=== PATIENT | male | born 1950 | race Caucasian/White ===

== ENCOUNTER 2023-01-21 13:50 | Outpatient (CLI) | payer MEDICARE, SELFPAY ==
--- NOTE | ~2023-01-21 | US_ITS ---
EXAMINATION: US renal BI DATE: 01/21/2023 14:33 INDICATION: Chronic kidney disease TECHNIQUE: Multiple ultrasound grayscale images of the kidneys were obtained. COMPARISON: None. FINDINGS: The right kidney measures 10.1 x 5.8 x 5.2 cm. The left kidney measures 11.2 x 5.6 x 5.1 cm. The kidn eys demonstrate normal echogenicity. There is no hydronephrosis in either kidney. No stones identifi ed. The bladder is normal with bilateral ureteral jets visualized on color Doppler. Increased activit y of the visualized liver consistent with diffuse hepatic steatosis. IMPRESSION: 1. Normal kidneys without hydronephrosis. Reviewed, dictated and finalized at location L.
== END 2023-01-21 13:51 | disposition home or self-care (01) ==
PROVIDERS: PCP Family Medicine Adolescent Medicine; Visit Provider Internal Medicine Nephrology
DX: I12.9 Hypertensive chronic kidney disease with stage 1 through stage 4 chronic kidney disease, or unspecified chronic kidney disease (principal); N18.32 Chronic kidney disease, stage 3b
CPT/HCPCS: 76775

== ENCOUNTER 2024-01-04 12:05 | Outpatient (CLI) | payer MEDICARE, SELFPAY ==
--- NOTE | ~2024-01-04 | XR_ITS ---
XR chest 2V 01/04/2024 12:18 Indication: Chronic cough Procedure: 2 view chest Comparison: No prior studies for comparison. Findings: Status post median sternotomy for CABG. Heart size normal. No focal air space disease, pulm onary edema, pleural effusion or suspected pneumothorax. There is a prosthetic heart valve. Impression: 1: No acute cardiopulmonary disease. Reviewed, dictated and finalized at location B. Impression: 1: No acute cardiopulmonary disease.
== END 2024-01-04 12:06 ==
LOC: MICIMG 12:06
PROVIDERS: PCP Family Medicine Adolescent Medicine; Visit Provider Family Medicine Adolescent Medicine
DX: R05.3 Chronic cough (principal)
CPT/HCPCS: 71046

== ENCOUNTER 2024-05-02 02:08 | Day surgery (SDC) | payer MEDICARE, SELFPAY ==
[2024-04-12 10:59] VITALS: BMI 31.6
[2024-05-02 09:01] VITALS: BP 164/90; PULSE 62; RESP 20; TEMP 36.1; O2SAT 97; BMI 32.9
[2024-05-02] MEDS: LACTATED RINGERS 1,000 ML 150 ML IV CONT (09:25)
[2024-05-02 09:27] LABS: Glucose Point of Care 127 mg/dl (65-105)
--- NOTE | 2024-05-02 09:31 | WPDANESEPPF ---
Anes - Initial Pre Proc Eval Procedure: Operation Date: 05/02/24 10:00 Proposed Procedures p Screening Colonoscopy - Zander Norris MD Date/Time: 05/02/24 09:31 Surgeon: Zander Norris MD Pre Op Diagnosis: neoplasm screening Patient Data Age: 73 Gender: M Height: 1.78 m Weight: 104.2 kg Last Vital Signs Temp 97.0 F L 05/02/24 09:01 Pulse 62 05/02/24 09:01 Resp 20 05/02/24 09:01 BP 164/90 H 05/02/24 09:01 Pulse Ox 97 05/02/24 09:01 O2 Del Method Room Air 05/02/24 09:01 Allergies Allergy/AdvReac Type Severity Reaction Status Date / Time No Known Allergies Allergy Verified 05/02/24 09:08 Home Medications Medication Instructions Recorded Confirmed Type aspirin 81 mg tablet,delayed 81 mg PO DAILY 09/10/21 05/02/24 History release (Adult Aspirin Regimen) multivitamin (Daily Multi-Vitamin 1 tablet PO DAILY 12/02/21 05/02/24 History tablet) amlodipine 10 mg tablet 10 mg PO DAILY #90 tabs 11/18/23 05/02/24 Rx candesartan 32 mg tablet 32 mg PO DAILY #90 tabs 11/18/23 05/02/24 Rx levothyroxine 175 mcg tablet 175 mcg PO DAILY #90 tabs 11/18/23 05/02/24 Rx propranolol 60 mg tablet See Rx Instructions .Route 11/18/23 05/02/24 Rx .COMPLEX #360 tabs rosuvastatin 10 mg tablet 10 mg PO DAILY 01/04/24 05/02/24 History doxazosin 2 mg tablet See Rx Instructions .Route 03/07/24 05/02/24 Rx .COMPLEX #90 tabs metformin 500 mg tablet,extended See Rx Instructions .Route 04/23/24 05/02/24 Rx release 24 hr .COMPLEX #180 tabs montelukast 10 mg tablet See Rx Instructions .Route 04/23/24 05/02/24 Rx .COMPLEX #90 tabs Laboratory Tests 05/02/24 09:18 POC Capillary Glucose 127 H mg/dl (65-105) Patient hx anesthesia problems: none Family hx anesthesia problems: none Results Review: All pre-operative results and documents have been reviewed as part of the pre-operative evaluation. [facility] Past Medical History Medical History Benign prostatic hyperplasia with lower urinary tract symptoms CKD (chronic kidney disease) Essential (primary) hypertension Essential tremor Hypothyroidism, unspecified Mixed hyperlipidemia Type 2 diabetes mellitus without complications (~06/2021) Surgical History Surgical History History of mitral valve repair 2005 Family History Family History Father Carcinoma of colon Colon polyp Hypertension Malignant neoplasm of prostate Lung cancer Social History Social History Smoking status: Never smoker Second hand tobacco smoke exposure: No Alcohol intake: current Drinks per week: 7 Alcohol use details: Rarely Substance use: never Substance use type: does not use Lack of Transportation: No Lack of Food: Never True Current Housing: I Have Housing Concerned About Future Housing: No Difficulty Paying Gas/Electric Bills: No Difficulty Paying for Meds: No Currently Unemployed: No Living arrangements: other Additional living arrangements comments: with sp Occupation/Education: retired Gender identity (if verbalized by the patient): Male Sexual Orientation (if Verbalized by the Patient): Straight or Heterosexual Spiritual care concerns: No Agree to blood products: Yes Anes - Eval Final PreProcedure Day of Procedure 05/02/24 09:31 Patient weight: obese Heart: regular rate and rhythm Lungs: clear to auscultation Airway: Mallampati scale Neurological: alert and oriented Last oral intake: >/= 8 hours ASA classification: III Emergent: no Anesthetic plan: proceed Anesthesia type and monitoring: general GIVS and standard monitoring Results Review: All pre-operative results and documents have been reviewed as part of the pre-ope
--- NOTE | 2024-05-02 10:01 | PM.HPGS ---
History of Present Illness History of Present Illness Consent: Risks, benefits, and alternatives have been discussed and questions answered. Patient agrees to proceed with procedure. Chief complaint: neoplasm screening Narrative: Keith Mendoza is a 73 year old male here for screening colonoscopy, last one 10 years ago Review of Systems Review of Systems: All systems reviewed & are unremarkable except as noted in HPI and below PMFSH Past Medical History Medical History (Updated 05/02/24 @ 10:04 by Zander Norris MD) Benign prostatic hyperplasia with lower urinary tract symptoms CKD (chronic kidney disease) Colon cancer screening Essential (primary) hypertension Essential tremor Hypothyroidism, unspecified Mixed hyperlipidemia Type 2 diabetes mellitus without complications (~06/2021) Surgical History Surgical History History of mitral valve repair 2005 Family History Family History Father Carcinoma of colon Colon polyp Hypertension Malignant neoplasm of prostate Lung cancer Social History Social History Smoking status: Never smoker Second hand tobacco smoke exposure: No Alcohol intake: current Drinks per week: 7 Alcohol use details: Rarely Substance use: never Substance use type: does not use Lack of Transportation: No Lack of Food: Never True Current Housing: I Have Housing Concerned About Future Housing: No Difficulty Paying Gas/Electric Bills: No Difficulty Paying for Meds: No Currently Unemployed: No Living arrangements: other Additional living arrangements comments: with sp Occupation/Education: retired Gender identity (if verbalized by the patient): Male Sexual Orientation (if Verbalized by the Patient): Straight or Heterosexual Spiritual care concerns: No Agree to blood products: Yes Meds Home Medications and Allergies Home Medications Medication Instructions Recorded Confirmed Type aspirin 81 mg tablet,delayed 81 mg PO DAILY 09/10/21 05/02/24 History release (Adult Aspirin Regimen) multivitamin (Daily Multi-Vitamin 1 tablet PO DAILY 12/02/21 05/02/24 History tablet) amlodipine 10 mg tablet 10 mg PO DAILY #90 tabs 11/18/23 05/02/24 Rx candesartan 32 mg tablet 32 mg PO DAILY #90 tabs 11/18/23 05/02/24 Rx levothyroxine 175 mcg tablet 175 mcg PO DAILY #90 tabs 11/18/23 05/02/24 Rx propranolol 60 mg tablet See Rx Instructions .Route 11/18/23 05/02/24 Rx .COMPLEX #360 tabs rosuvastatin 10 mg tablet 10 mg PO DAILY 01/04/24 05/02/24 History doxazosin 2 mg tablet See Rx Instructions .Route 03/07/24 05/02/24 Rx .COMPLEX #90 tabs metformin 500 mg tablet,extended See Rx Instructions .Route 04/23/24 05/02/24 Rx release 24 hr .COMPLEX #180 tabs montelukast 10 mg tablet See Rx Instructions .Route 04/23/24 05/02/24 Rx .COMPLEX #90 tabs Allergies Allergy/AdvReac Type Severity Reaction Status Date / Time No Known Allergies Allergy Verified 05/02/24 09:08 Vital Signs Vital Signs - 24 hr 05/02/24 09:01 Temperature 97.0 F L Pulse Rate 62 Respiratory Rate 20 Blood Pressure 164/90 H Pulse Oximetry 97 Oxygen Delivery Room Air Exam Const: General: comfortable and no acute distress HENMT: Face/Nose/Sinus: Normal nares present Eyes: General: appearance normal, both eyes and all related structures Neck: Neck: no JVD Resp: Auscultation: clear to auscultation bilaterally Cardio: Rate: regular rate Rhythm: regular rhythm GI: Inspection: non-distended GI Palp: Yes Soft to palpation Skin: General skin exam: normal color Neuro: General: gait normal Speech: normal speech Extrem: General: normal to inspection Psych: Mental Status: mental status grossly normal Assessment and Plan Assessment and plan (1) Colon canc
[2024-05-02 10:20] VITALS: BP 125/70; PULSE 49; RESP 13; O2SAT 94
--- NOTE | 2024-05-02 10:21 | SUR.OPER ---
Dr. Cooper notified that descending colon polyp was unretrieved. No further orders received.
[2024-05-02 10:30] VITALS: BP 131/69; PULSE 50; RESP 13; O2SAT 95
[2024-05-02 10:40] VITALS: BP 142/74; PULSE 54; RESP 17; O2SAT 98
== END 2024-05-02 10:44 | disposition home or self-care (01) ==
PROVIDERS: PCP Family Medicine Adolescent Medicine; Visit Provider Internal Medicine Gastroenterology
PROC: 0DJD8ZZ Inspection of Lower Intestinal Tract, Via Natural or Artificial Opening Endoscopic (ICD-10-PCS; CPT 45378; principal; 2024-05-02 10:00)
DX: Z12.11 Encounter for screening for malignant neoplasm of colon (principal); D12.3 Benign neoplasm of transverse colon; K64.8 Other hemorrhoids; I12.9 Hypertensive chronic kidney disease with stage 1 through stage 4 chronic kidney disease, or unspecified chronic kidney disease; E11.22 Type 2 diabetes mellitus with diabetic chronic kidney disease; N18.9 Chronic kidney disease, unspecified; E78.2 Mixed hyperlipidemia; E03.9 Hypothyroidism, unspecified; G25.0 Essential tremor; N40.1 Benign prostatic hyperplasia with lower urinary tract symptoms; E66.9 Obesity, unspecified; Z68.33 Body mass index [BMI] 33.0-33.9, adult; Z79.82 Long term (current) use of aspirin; Z79.84 Long term (current) use of oral hypoglycemic drugs
CPT/HCPCS: 45385; 82948; 88305; J2704; J7120